=== PATIENT | male | born 1990 | race African-American/Black ===

== ENCOUNTER 2019-10-03 16:25 | Emergency (ER) | payer OTHER, SELFPAY | END 2019-10-03 16:52 | disposition home or self-care (01) | LOC: ERS 16:25 | DX: L23.7 Allergic contact dermatitis due to plants, except food (principal); K08.89 Other specified disorders of teeth and supporting structures; F17.200 Nicotine dependence, unspecified, uncomplicated | CPT/HCPCS: 99282 ==

== ENCOUNTER 2020-06-25 13:34 | Emergency (ER) | payer OTHER | END 2020-06-25 14:33 | disposition home or self-care (01) | LOC: ERS 13:34 | DX: L73.9 Follicular disorder, unspecified (principal); F17.200 Nicotine dependence, unspecified, uncomplicated | CPT/HCPCS: 99282 ==